=== PATIENT | male | born 1955 | race Caucasian/White ===

== ENCOUNTER 2023-01-08 09:06 | Outpatient (REF) | payer MEDICARE, MEDICAID, SELFPAY ==
[2023-01-08 12:40] LABS: Anion Gap 14 (12-20); Blood Urea Nitrogen 21 mg/dL (9-16); Calcium 9.7 mg/dL (8.4-10.2); Carbon Dioxide 26 mmol/L (22-29); Chloride 104 mmol/L (96-108); Estimated Glomerular Filt Rate > 60; Glucose Random 98 mg/dL (60-115); Potassium 3.6 mmol/L (3.3-5.1); Sodium 140 mmol/L (135-145)
[2023-01-08 13:12] LABS: Creatinine Urine 146.64 mg/dL; Microalbum/Creatinine Ratio Ur 8.1 ug/mg cr (<30)
[2023-01-12 12:49] LABS: VITAMIN D (1,25 OH) D3 41 pg/mL; Vit D (1,25-Dihydroxy) Total 41 pg/mL (18-72); Vitamin D (1,25 OH) D2 <8 pg/mL
== END 2023-01-08 09:07 | disposition home or self-care (01) ==
LOC: HO.HHCL 09:06
PROVIDERS: Visit Provider Nurse Practitioner Primary Care
DX: I10 Essential (primary) hypertension (principal); E55.9 Vitamin D deficiency, unspecified
CPT/HCPCS: 36415; 80048; 82043; 82570; 82652